=== PATIENT | female | born 1980 | race American Indian/Alaskan Native ===

== ENCOUNTER 2018-03-04 10:18 | Outpatient (CLI) | payer BC ==
[2018-03-04] MEDS ORDERED: XYLOCAINE TOPICAL 4% TP ONE ×2 (10:47→10:48)
== END 2018-03-04 10:19 | disposition home or self-care (01) ==
LOC: WOUND 10:18
PROVIDERS: ATTEND Surgery
DX: T81.89XA Other complications of procedures, not elsewhere classified, initial encounter (principal); X58.XXXA Exposure to other specified factors, initial encounter; Y93.89 Activity, other specified; Y92.89 Other specified places as the place of occurrence of the external cause; Y99.8 Other external cause status
CPT/HCPCS: 99205; 99215; G0463

== ENCOUNTER 2018-03-11 08:07 | Outpatient (CLI) | payer BC ==
[2018-03-11] MEDS ORDERED: XYLOCAINE TOPICAL 4% TP ONE ×2 (08:23→08:38)
[2018-03-11] MEDS ORDERED: XYLOCAINE 2%/ EPI 1:200,000 INFILTRATI ONE ×2 (08:48→08:59)
[2018-03-11] MEDS ORDERED: SILVER NITRATE TP ONE ×2 (08:56→09:01)
== END 2018-03-11 08:08 | disposition home or self-care (01) ==
LOC: WOUND 08:07
PROVIDERS: ATTEND Surgery
DX: T81.89XD Other complications of procedures, not elsewhere classified, subsequent encounter (principal); Y83.8 Other surgical procedures as the cause of abnormal reaction of the patient, or of later complication, without mention of misadventure at the time of the procedure

== ENCOUNTER 2018-03-15 09:03 | Day surgery (SDC) | payer BC ==
[2018-03-15] MEDS ORDERED: DEMEROL IV PRN (10:16)
[2018-03-15] MEDS ORDERED: DILAUDID IV PRN (10:16)
[2018-03-15] MEDS ORDERED: ZOFRAN IV PRN (10:16)
--- NOTE | 2018-03-15 10:17 | Anesthesia Day of Surgery ---
Anesthesia Day of Surgery - Day of Surgery Patient Examined: Yes Patient H&P Reviewed: Yes Patient is NPO: Yes
--- NOTE | 2018-03-15 10:18 | Anesthesia Consultation ---
Anesthesia Consult and Med Hx Date of service: 03/15/18 - Airway Anesthetic Teeth Evaluation: Good ROM Head & Neck: Adequate Mental/Hyoid Distance: Adequate Mallampati Class: Class I Intubation Access Assessment: Good - Pulmonary Exam CTA: Yes - Cardiac Exam Cardiac Exam: RRR - Pre-Operative Health Status ASA Pre-Surgery Classification: ASA1 Proposed Anesthetic Plan: General - Central Nervous System Hx Psychiatric Problems: No - Other Systems Hx Alcohol Use: Yes ([facility]) Hx Substance Use: No Hx Cancer: No
--- NOTE | 2018-03-15 10:49 | XRay Report ---
RIGHT FOOT, 2 views: History: Right wound. No comparison. There have been previous surgical changes involving the distal first metatarsal, correlate with history. There appears to be soft tissue swelling and skin ulceration in this area. There is subtle bony lucency involving the distal first metatarsal. I cannot exclude an early osteomyelitis. The remaining bony structures and joint spaces are unremarkable. IMPRESSION: Surgical changes as described. Possible early osteomyelitis. Please correlate with the patient's clinical presentation. Triple phase bone scan may prove useful.
[2018-03-15] MEDS ORDERED: LACTATED RINGERS 1,000 ML IV SCH ×2 (11:00→12:00)
[2018-03-15] MEDS ORDERED: VERSED IV NR (11:00)
[2018-03-15] MEDS ORDERED: ANCEF/STERILE WATER 2 GM/20 ML IV NR (11:00)
[2018-03-15] MEDS ORDERED: DIPRIVAN 10 MG/ML IV ONE (11:27)
[2018-03-15] MEDS ORDERED: ZOFRAN ONE (11:28)
[2018-03-15] MEDS ORDERED: DECADRON ONE (11:28)
[2018-03-15] MEDS ORDERED: XYLOCAINE MPF 2% ONE (11:29)
[2018-03-15] MEDS ORDERED: SUBLIMAZE ONE (11:44)
[2018-03-15] MEDS ORDERED: NORCO 5/325 PO ONE (13:47)
--- NOTE | 2018-03-15 14:08 | Post Anesthesia Evaluation ---
- Post Anesthesia Evaluation Patient Participated: Yes Airway Patent: Yes Stable Respiratory Function: Yes Nausea/Vomiting: No Temp > 96.8F: Yes Pain Manageable: Yes Adequeate Hydration: Yes Anesthesia Complications: No
[2018-03-15 14:44] VITALS: BP 107/73
--- NOTE | 2018-03-15 18:55 | Operative Report ---
Operative Report Operative Report: Date of procedure: 03/15/18 Pre-op diagnosis: dry gangrene right foot wound Post-op diagnosis: same Procedure: excisional debridement of necrotic right foot wound Anesthesia: GETA Findings: Necrotic skin, subcutaneous tissue, tendon, and bone. Exposed harware. Surgeon: MARCELO LOZA Estimated blood loss: minimal Pathology: list (cultures) Specimen disposition: to lab Condition: stable HPI an indication: Patient is a 37-year-old female who was referred by her varnish melter to the wound care clinic for a wound of her right foot. The patient is status post recent bunionectomy of the right foot and subsequently developed a necrotic wound. An attempt was made at debridement in the office however the patient did not tolerate this as it was too painful. Therefore, she was scheduled for the operating room for debridement of dry gangrene of right foot wound. All risks, benefits, alternatives to surgery were discussed with the patient and she agreed to proceed. Consent was signed and placed on chart. Procedure in detail: The patient was identified in the preoperative area, taken back to the operating room, placed on the operating room table in supine position. After anesthesia was induced, the right foot was prepped and draped in the usual sterile fashion and a timeout was performed. Using forceps and a 10 blade, the necrotic eschar, gangrenous tissue of the forefoot and medial foot was debrided until healthy, bleeding tissue was encountered. Once the skin and subcutaneous tissue was removed, the hardware from the bunionectomy was visible as well as bone. The majority of the tendon to the great toe did appear viable and was left in situ intact. A portion of the tendon which appeared necrotic, was debrided. The bone was debrided using a curet. The cuneiform bone and first metatarsal bone appeared black on the surface however the structural integrity appeared intact. The debrided tissue was sent for culture The wound was irrigated with saline, and hemostasis achieved using electrocautery. Once hemostasis was ensured, the wound was packed with Betadine moistened 4 x 4 gauze. This was covered with dry 4 x 4 gauze, ABDs pad , and wrapped with Kerlix. Predebridement measurements: 8.5cm length x 6cm width x 0.3cm depth Postdebridement measurements: 9.2cm length x 7cm width x 0.4cm depth At the end of the case, all sponge, instrument, sharp counts were correct 2. The patient was awoken from anesthesia, extubated, taken to PACU in stable condition.
== END 2018-03-15 14:45 | disposition home or self-care (01) ==
LOC: OR 09:03
PROVIDERS: ATTEND Surgery
DX: I96 Gangrene, not elsewhere classified (principal)
CPT/HCPCS: 36415; 73620; 84703; 87116; J0690; J1100; J2250; J2405; J2704; J3010; J7120

== ENCOUNTER 2018-03-17 08:08 | Outpatient (CLI) | payer BC ==
[2018-03-17] MEDS ORDERED: XYLOCAINE TOPICAL 4% TP ONE (08:40)
== END 2018-03-17 08:09 | disposition home or self-care (01) ==
LOC: WOUND 08:08
PROVIDERS: ATTEND Surgery
DX: T81.89XD Other complications of procedures, not elsewhere classified, subsequent encounter (principal); I96 Gangrene, not elsewhere classified; Y83.8 Other surgical procedures as the cause of abnormal reaction of the patient, or of later complication, without mention of misadventure at the time of the procedure
CPT/HCPCS: 99213; G0463

== ENCOUNTER 2018-03-18 10:02 | Outpatient (CLI) | payer BC | END 2018-03-18 10:03 | disposition home or self-care (01) | LOC: WOUND 10:02 | PROVIDERS: ATTEND Surgery | DX: T81.89XA Other complications of procedures, not elsewhere classified, initial encounter (principal); A48.0 Gas gangrene; Y83.8 Other surgical procedures as the cause of abnormal reaction of the patient, or of later complication, without mention of misadventure at the time of the procedure; Y92.89 Other specified places as the place of occurrence of the external cause | CPT/HCPCS: G0277 ×2; 99183 ==

== ENCOUNTER 2018-03-19 10:02 | Outpatient (CLI) | payer BC | END 2018-03-19 10:03 | disposition home or self-care (01) | LOC: WOUND 10:02 | PROVIDERS: ATTEND Surgery | DX: T81.89XD Other complications of procedures, not elsewhere classified, subsequent encounter (principal); A48.0 Gas gangrene; Y83.8 Other surgical procedures as the cause of abnormal reaction of the patient, or of later complication, without mention of misadventure at the time of the procedure | CPT/HCPCS: G0277 ×2; 99183 ==

== ENCOUNTER 2018-03-22 10:05 | Outpatient (CLI) | payer BC | END 2018-03-22 10:06 | disposition home or self-care (01) | LOC: WOUND 10:05 | PROVIDERS: ATTEND Surgery | DX: T81.89XD Other complications of procedures, not elsewhere classified, subsequent encounter (principal); A48.0 Gas gangrene; Y83.8 Other surgical procedures as the cause of abnormal reaction of the patient, or of later complication, without mention of misadventure at the time of the procedure | CPT/HCPCS: G0277 ×2; 99183 ==

== ENCOUNTER 2018-03-23 10:07 | Outpatient (CLI) | payer BC | END 2018-03-23 10:08 | disposition home or self-care (01) | LOC: WOUND 10:07 | PROVIDERS: ATTEND Surgery | DX: T81.89XD Other complications of procedures, not elsewhere classified, subsequent encounter (principal); A48.0 Gas gangrene; Y83.8 Other surgical procedures as the cause of abnormal reaction of the patient, or of later complication, without mention of misadventure at the time of the procedure | CPT/HCPCS: G0277 ×2; 99183 ==

== ENCOUNTER 2018-03-25 09:08 | Outpatient (CLI) | payer BC ==
[2018-03-25] MEDS ORDERED: XYLOCAINE TOPICAL 4% TP ONE (09:28)
== END 2018-03-25 09:09 | disposition home or self-care (01) ==
LOC: WOUND 09:08
PROVIDERS: ATTEND Surgery
DX: T81.89XD Other complications of procedures, not elsewhere classified, subsequent encounter (principal); A48.0 Gas gangrene; Y83.8 Other surgical procedures as the cause of abnormal reaction of the patient, or of later complication, without mention of misadventure at the time of the procedure
CPT/HCPCS: 11044; 11047; G0277; 99183

== ENCOUNTER 2018-03-26 11:01 | Outpatient (CLI) | payer BC | END 2018-03-26 11:02 | disposition home or self-care (01) | LOC: WOUND 11:01 | PROVIDERS: ATTEND Surgery | DX: T81.89XD Other complications of procedures, not elsewhere classified, subsequent encounter (principal); A48.0 Gas gangrene; Y83.8 Other surgical procedures as the cause of abnormal reaction of the patient, or of later complication, without mention of misadventure at the time of the procedure | CPT/HCPCS: G0277 ×2; 99183 ==

== ENCOUNTER 2018-03-29 10:12 | Outpatient (CLI) | payer BC | END 2018-03-29 10:13 | disposition home or self-care (01) | LOC: WOUND 10:12 | PROVIDERS: ATTEND Surgery | DX: T81.89XD Other complications of procedures, not elsewhere classified, subsequent encounter (principal); A48.0 Gas gangrene; Y83.8 Other surgical procedures as the cause of abnormal reaction of the patient, or of later complication, without mention of misadventure at the time of the procedure | CPT/HCPCS: G0277 ×2; 99183 ==

== ENCOUNTER 2018-03-30 09:56 | Outpatient (CLI) | payer BC | END 2018-03-30 09:57 | disposition home or self-care (01) | LOC: WOUND 09:56 | PROVIDERS: ATTEND Surgery | DX: T81.89XD Other complications of procedures, not elsewhere classified, subsequent encounter (principal); A48.0 Gas gangrene; Y83.8 Other surgical procedures as the cause of abnormal reaction of the patient, or of later complication, without mention of misadventure at the time of the procedure | CPT/HCPCS: G0277 ×2; 99183 ==

== ENCOUNTER 2018-03-31 09:53 | Outpatient (CLI) | payer BC | END 2018-03-31 09:54 | disposition home or self-care (01) | LOC: WOUND 09:53 | PROVIDERS: ATTEND Surgery | DX: T81.89XD Other complications of procedures, not elsewhere classified, subsequent encounter (principal); A48.0 Gas gangrene; Y83.8 Other surgical procedures as the cause of abnormal reaction of the patient, or of later complication, without mention of misadventure at the time of the procedure | CPT/HCPCS: G0277 ×2; 99183 ==

== ENCOUNTER 2018-04-01 09:11 | Outpatient (CLI) | payer BC ==
[2018-04-01] MEDS ORDERED: XYLOCAINE TOPICAL 4% TP ONE (09:16)
== END 2018-04-01 09:12 | disposition home or self-care (01) ==
LOC: WOUND 09:11
PROVIDERS: ATTEND Surgery
DX: T81.89XD Other complications of procedures, not elsewhere classified, subsequent encounter (principal); A48.0 Gas gangrene; Y83.8 Other surgical procedures as the cause of abnormal reaction of the patient, or of later complication, without mention of misadventure at the time of the procedure
CPT/HCPCS: 11044; 11047; G0277; 99183

== ENCOUNTER 2018-04-02 10:11 | Outpatient (CLI) | payer BC | END 2018-04-02 10:12 | disposition home or self-care (01) | LOC: WOUND 10:11 | PROVIDERS: ATTEND Surgery | DX: T81.89XD Other complications of procedures, not elsewhere classified, subsequent encounter (principal); A48.0 Gas gangrene; Y83.8 Other surgical procedures as the cause of abnormal reaction of the patient, or of later complication, without mention of misadventure at the time of the procedure | CPT/HCPCS: G0277 ×2; 99183 ==

== ENCOUNTER 2018-04-05 10:19 | Outpatient (CLI) | payer BC | END 2018-04-05 10:20 | disposition home or self-care (01) | LOC: WOUND 10:19 | PROVIDERS: ATTEND Surgery | DX: T81.89XD Other complications of procedures, not elsewhere classified, subsequent encounter (principal); A48.0 Gas gangrene; Y83.8 Other surgical procedures as the cause of abnormal reaction of the patient, or of later complication, without mention of misadventure at the time of the procedure | CPT/HCPCS: G0277 ×2; 99183 ==

== ENCOUNTER 2018-04-06 10:14 | Outpatient (CLI) | payer BC | END 2018-04-06 10:15 | disposition home or self-care (01) | LOC: WOUND 10:14 | PROVIDERS: ATTEND Surgery | DX: T81.89XD Other complications of procedures, not elsewhere classified, subsequent encounter (principal); A48.0 Gas gangrene; Y83.8 Other surgical procedures as the cause of abnormal reaction of the patient, or of later complication, without mention of misadventure at the time of the procedure | CPT/HCPCS: G0277 ×2; 99183 ==

== ENCOUNTER 2018-04-07 10:12 | Outpatient (CLI) | payer BC | END 2018-04-07 10:13 | disposition home or self-care (01) | LOC: WOUND 10:12 | PROVIDERS: ATTEND Surgery | DX: T81.89XD Other complications of procedures, not elsewhere classified, subsequent encounter (principal); A48.0 Gas gangrene; Y83.8 Other surgical procedures as the cause of abnormal reaction of the patient, or of later complication, without mention of misadventure at the time of the procedure | CPT/HCPCS: G0277 ×2; 99183 ==

== ENCOUNTER 2018-04-08 10:13 | Outpatient (CLI) | payer BC | END 2018-04-08 10:14 | disposition home or self-care (01) | LOC: WOUND 10:13 | PROVIDERS: ATTEND Surgery | DX: T81.89XD Other complications of procedures, not elsewhere classified, subsequent encounter (principal); A48.0 Gas gangrene; Y83.8 Other surgical procedures as the cause of abnormal reaction of the patient, or of later complication, without mention of misadventure at the time of the procedure | CPT/HCPCS: G0277 ×2; 99183 ==

== ENCOUNTER 2018-04-09 10:09 | Outpatient (CLI) | payer BC | END 2018-04-09 10:10 | disposition home or self-care (01) | LOC: WOUND 10:09 | PROVIDERS: ATTEND Surgery | DX: T81.89XD Other complications of procedures, not elsewhere classified, subsequent encounter (principal); A48.0 Gas gangrene; Y83.8 Other surgical procedures as the cause of abnormal reaction of the patient, or of later complication, without mention of misadventure at the time of the procedure | CPT/HCPCS: G0277 ×2; 99183 ==

== ENCOUNTER 2018-04-12 10:13 | Outpatient (CLI) | payer BC | END 2018-04-12 10:14 | disposition home or self-care (01) | LOC: WOUND 10:13 | PROVIDERS: ATTEND Surgery | DX: T81.89XD Other complications of procedures, not elsewhere classified, subsequent encounter (principal); A48.0 Gas gangrene; Y83.8 Other surgical procedures as the cause of abnormal reaction of the patient, or of later complication, without mention of misadventure at the time of the procedure | CPT/HCPCS: G0277; G0463; 99183 ==

== ENCOUNTER 2018-04-13 09:57 | Outpatient (CLI) | payer BC | END 2018-04-13 09:58 | disposition home or self-care (01) | LOC: WOUND 09:57 | PROVIDERS: ATTEND Surgery | DX: T81.89XD Other complications of procedures, not elsewhere classified, subsequent encounter (principal); A48.0 Gas gangrene; Y83.8 Other surgical procedures as the cause of abnormal reaction of the patient, or of later complication, without mention of misadventure at the time of the procedure | CPT/HCPCS: G0277 ×2; 99183 ==

== ENCOUNTER 2018-04-14 10:14 | Outpatient (CLI) | payer BC | END 2018-04-14 10:15 | disposition home or self-care (01) | LOC: WOUND 10:14 | PROVIDERS: ATTEND Surgery | DX: T81.89XD Other complications of procedures, not elsewhere classified, subsequent encounter (principal); A48.0 Gas gangrene; Y83.8 Other surgical procedures as the cause of abnormal reaction of the patient, or of later complication, without mention of misadventure at the time of the procedure | CPT/HCPCS: G0277 ×2; 99183 ==

== ENCOUNTER 2018-04-15 09:09 | Outpatient (CLI) | payer BC | END 2018-04-15 09:10 | disposition home or self-care (01) | LOC: WOUND 09:09 | PROVIDERS: ATTEND Surgery | DX: T81.89XD Other complications of procedures, not elsewhere classified, subsequent encounter (principal); A48.0 Gas gangrene; Y83.8 Other surgical procedures as the cause of abnormal reaction of the patient, or of later complication, without mention of misadventure at the time of the procedure | CPT/HCPCS: 97606; G0277; 99183 ==

== ENCOUNTER 2018-04-16 10:12 | Outpatient (CLI) | payer BC | END 2018-04-16 10:13 | disposition home or self-care (01) | LOC: WOUND 10:12 | PROVIDERS: ATTEND Surgery | DX: T81.89XD Other complications of procedures, not elsewhere classified, subsequent encounter (principal); A48.0 Gas gangrene; Y83.8 Other surgical procedures as the cause of abnormal reaction of the patient, or of later complication, without mention of misadventure at the time of the procedure | CPT/HCPCS: G0277 ×2; 99183 ==

== ENCOUNTER 2018-04-19 08:22 | Outpatient (CLI) | payer BC ==
[2018-04-19] MEDS ORDERED: XYLOCAINE TOPICAL 4% TP ONE (10:57)
== END 2018-04-19 08:23 | disposition home or self-care (01) ==
LOC: WOUND 08:22
PROVIDERS: ATTEND Surgery
DX: T81.89XD Other complications of procedures, not elsewhere classified, subsequent encounter (principal); A48.0 Gas gangrene; Y83.8 Other surgical procedures as the cause of abnormal reaction of the patient, or of later complication, without mention of misadventure at the time of the procedure
CPT/HCPCS: 11042; 11045; 97605; G0277; 99183

== ENCOUNTER 2018-04-21 08:02 | Outpatient (CLI) | payer BC | END 2018-04-21 08:03 | disposition home or self-care (01) | LOC: WOUND 08:02 | PROVIDERS: ATTEND Surgery | DX: T81.89XD Other complications of procedures, not elsewhere classified, subsequent encounter (principal); M86.671 Other chronic osteomyelitis, right ankle and foot; Y83.8 Other surgical procedures as the cause of abnormal reaction of the patient, or of later complication, without mention of misadventure at the time of the procedure | CPT/HCPCS: G0277 ×2; 99183 ==

== ENCOUNTER 2018-04-22 08:03 | Outpatient (CLI) | payer BC | END 2018-04-22 08:04 | disposition home or self-care (01) | LOC: WOUND 08:03 | PROVIDERS: ATTEND Surgery | DX: T81.89XD Other complications of procedures, not elsewhere classified, subsequent encounter (principal); M86.671 Other chronic osteomyelitis, right ankle and foot; Y83.8 Other surgical procedures as the cause of abnormal reaction of the patient, or of later complication, without mention of misadventure at the time of the procedure | CPT/HCPCS: 97605; G0277; 99183 ==

== ENCOUNTER 2018-04-23 08:00 | Outpatient (CLI) | payer BC | END 2018-04-23 08:01 | disposition home or self-care (01) | LOC: WOUND 08:00 | PROVIDERS: ATTEND Surgery | DX: T81.89XD Other complications of procedures, not elsewhere classified, subsequent encounter (principal); M86.671 Other chronic osteomyelitis, right ankle and foot; I96 Gangrene, not elsewhere classified; Y83.8 Other surgical procedures as the cause of abnormal reaction of the patient, or of later complication, without mention of misadventure at the time of the procedure | CPT/HCPCS: G0277 ×2; 99183 ==

== ENCOUNTER 2018-04-26 08:08 | Outpatient (CLI) | payer BC ==
[2018-04-26] MEDS ORDERED: XYLOCAINE TOPICAL 4% TP ONE (10:53)
== END 2018-04-26 08:09 | disposition home or self-care (01) ==
LOC: WOUND 08:08
PROVIDERS: ATTEND Surgery
DX: T81.89XD Other complications of procedures, not elsewhere classified, subsequent encounter (principal); M86.671 Other chronic osteomyelitis, right ankle and foot; I96 Gangrene, not elsewhere classified; Y83.8 Other surgical procedures as the cause of abnormal reaction of the patient, or of later complication, without mention of misadventure at the time of the procedure
CPT/HCPCS: 11043; 11046; 87075; 87116; 97605; G0277; 99183

== ENCOUNTER 2018-04-27 08:11 | Outpatient (CLI) | payer BC ==
[~2018-04-27 08:11] MED LIST: XYLOCAINE TOPICAL 4% TP ONE
== END 2018-04-27 08:12 | disposition home or self-care (01) ==
LOC: WOUND 08:11
PROVIDERS: ATTEND Surgery
DX: T81.89XD Other complications of procedures, not elsewhere classified, subsequent encounter (principal); M86.671 Other chronic osteomyelitis, right ankle and foot; I96 Gangrene, not elsewhere classified; Y83.8 Other surgical procedures as the cause of abnormal reaction of the patient, or of later complication, without mention of misadventure at the time of the procedure
CPT/HCPCS: G0277 ×2; 99183

== ENCOUNTER 2018-04-30 08:03 | Outpatient (CLI) | payer BC | END 2018-04-30 08:04 | disposition home or self-care (01) | LOC: WOUND 08:03 | PROVIDERS: ATTEND Surgery | DX: T81.89XD Other complications of procedures, not elsewhere classified, subsequent encounter (principal); M86.671 Other chronic osteomyelitis, right ankle and foot; I96 Gangrene, not elsewhere classified; Y83.8 Other surgical procedures as the cause of abnormal reaction of the patient, or of later complication, without mention of misadventure at the time of the procedure | CPT/HCPCS: G0277 ×2; 99183 ==

== ENCOUNTER 2018-05-03 08:03 | Outpatient (CLI) | payer BC ==
[2018-05-03] MEDS ORDERED: XYLOCAINE TOPICAL 4% TP ONE (11:01)
[2018-05-04] MEDS ORDERED: XYLOCAINE TOPICAL 4% TP ONE (15:07)
== END 2018-05-03 08:04 | disposition home or self-care (01) ==
LOC: WOUND 08:03
PROVIDERS: ATTEND Surgery
DX: T81.89XD Other complications of procedures, not elsewhere classified, subsequent encounter (principal); M86.671 Other chronic osteomyelitis, right ankle and foot; I96 Gangrene, not elsewhere classified; Y83.8 Other surgical procedures as the cause of abnormal reaction of the patient, or of later complication, without mention of misadventure at the time of the procedure
CPT/HCPCS: 97605; G0277; 99183

== ENCOUNTER → 2018-05-04 | Outpatient (CLI) | payer BC | END | disposition home or self-care (01) | LOC: WOUND 08:09 | PROVIDERS: ATTEND Surgery | DX: T81.89XD Other complications of procedures, not elsewhere classified, subsequent encounter (principal); M86.671 Other chronic osteomyelitis, right ankle and foot; I96 Gangrene, not elsewhere classified; Y83.8 Other surgical procedures as the cause of abnormal reaction of the patient, or of later complication, without mention of misadventure at the time of the procedure | CPT/HCPCS: G0277 ×2; 99183 ==

== ENCOUNTER → 2018-05-05 | Outpatient (CLI) | payer BC | END | disposition home or self-care (01) | LOC: WOUND 07:59 | PROVIDERS: ATTEND Surgery | DX: T81.89XD Other complications of procedures, not elsewhere classified, subsequent encounter (principal); M86.671 Other chronic osteomyelitis, right ankle and foot; I96 Gangrene, not elsewhere classified; Y83.8 Other surgical procedures as the cause of abnormal reaction of the patient, or of later complication, without mention of misadventure at the time of the procedure | CPT/HCPCS: 97605; G0277; 99183 ==

== ENCOUNTER 2018-05-06 08:04 | Outpatient (CLI) | payer BC | END 2018-05-06 08:05 | disposition home or self-care (01) | LOC: WOUND 08:04 | PROVIDERS: ATTEND Surgery | DX: T81.89XD Other complications of procedures, not elsewhere classified, subsequent encounter (principal); M86.671 Other chronic osteomyelitis, right ankle and foot; I96 Gangrene, not elsewhere classified; Y83.8 Other surgical procedures as the cause of abnormal reaction of the patient, or of later complication, without mention of misadventure at the time of the procedure | CPT/HCPCS: 97605; G0277; 99183 ==

== ENCOUNTER 2018-05-07 08:02 | Outpatient (CLI) | payer BC | END 2018-05-07 08:03 | disposition home or self-care (01) | LOC: WOUND 08:02 | PROVIDERS: ATTEND Surgery | DX: T81.89XD Other complications of procedures, not elsewhere classified, subsequent encounter (principal); M86.671 Other chronic osteomyelitis, right ankle and foot; I96 Gangrene, not elsewhere classified; Y83.8 Other surgical procedures as the cause of abnormal reaction of the patient, or of later complication, without mention of misadventure at the time of the procedure | CPT/HCPCS: G0277 ×2; 99183 ==

== ENCOUNTER 2018-05-10 08:09 | Outpatient (CLI) | payer BC ==
[2018-05-10] MEDS ORDERED: XYLOCAINE TOPICAL 4% TP ONE ×2 (11:22→11:31)
== END 2018-05-10 08:10 | disposition home or self-care (01) ==
LOC: WOUND 08:09
PROVIDERS: ATTEND Surgery
DX: T81.89XD Other complications of procedures, not elsewhere classified, subsequent encounter (principal); M86.671 Other chronic osteomyelitis, right ankle and foot; I96 Gangrene, not elsewhere classified; Y83.8 Other surgical procedures as the cause of abnormal reaction of the patient, or of later complication, without mention of misadventure at the time of the procedure
CPT/HCPCS: 11042; 11045; 97605; G0277; 99183

== ENCOUNTER 2018-05-11 07:57 | Outpatient (CLI) | payer BC | END 2018-05-11 07:58 | disposition home or self-care (01) | LOC: WOUND 07:57 | PROVIDERS: ATTEND Surgery | DX: T81.89XD Other complications of procedures, not elsewhere classified, subsequent encounter (principal); M86.671 Other chronic osteomyelitis, right ankle and foot; I96 Gangrene, not elsewhere classified; Y83.8 Other surgical procedures as the cause of abnormal reaction of the patient, or of later complication, without mention of misadventure at the time of the procedure | CPT/HCPCS: 99183; G0277 ==

== ENCOUNTER 2018-05-12 08:03 | Outpatient (CLI) | payer BC | END 2018-05-12 08:04 | disposition home or self-care (01) | LOC: WOUND 08:03 | PROVIDERS: ATTEND Surgery | DX: T81.89XD Other complications of procedures, not elsewhere classified, subsequent encounter (principal); I96 Gangrene, not elsewhere classified; M86.671 Other chronic osteomyelitis, right ankle and foot; Y83.8 Other surgical procedures as the cause of abnormal reaction of the patient, or of later complication, without mention of misadventure at the time of the procedure | CPT/HCPCS: 99183; G0277 ==

== ENCOUNTER 2018-05-13 07:55 | Outpatient (CLI) | payer BC | END 2018-05-13 07:56 | disposition home or self-care (01) | LOC: WOUND 07:55 | PROVIDERS: ATTEND Surgery | DX: T81.89XD Other complications of procedures, not elsewhere classified, subsequent encounter (principal); I96 Gangrene, not elsewhere classified; M86.671 Other chronic osteomyelitis, right ankle and foot; Y83.8 Other surgical procedures as the cause of abnormal reaction of the patient, or of later complication, without mention of misadventure at the time of the procedure | CPT/HCPCS: G0277; G0463; 99183; 99212 ==

== ENCOUNTER 2018-05-14 08:02 | Outpatient (CLI) | payer BC | END 2018-05-14 08:03 | disposition home or self-care (01) | LOC: WOUND 08:02 | PROVIDERS: ATTEND Surgery | DX: T81.89XD Other complications of procedures, not elsewhere classified, subsequent encounter (principal); I96 Gangrene, not elsewhere classified; M86.671 Other chronic osteomyelitis, right ankle and foot; Y83.8 Other surgical procedures as the cause of abnormal reaction of the patient, or of later complication, without mention of misadventure at the time of the procedure | CPT/HCPCS: 97605; G0277; 99183 ==

== ENCOUNTER 2018-05-17 07:55 | Outpatient (CLI) | payer BC | END 2018-05-17 07:56 | disposition home or self-care (01) | LOC: WOUND 07:55 | PROVIDERS: ATTEND Surgery | DX: T81.89XD Other complications of procedures, not elsewhere classified, subsequent encounter (principal); I96 Gangrene, not elsewhere classified; M86.671 Other chronic osteomyelitis, right ankle and foot; Y83.8 Other surgical procedures as the cause of abnormal reaction of the patient, or of later complication, without mention of misadventure at the time of the procedure | CPT/HCPCS: 99183; G0277 ==

== ENCOUNTER 2018-05-18 08:00 | Outpatient (CLI) | payer BC ==
[2018-05-18] MEDS ORDERED: XYLOCAINE TOPICAL 4% TP ONE ×2 (11:13→13:50)
[2018-05-18] MEDS ORDERED: SILVER NITRATE TP ONE ×2 (11:58→15:39)
== END 2018-05-18 08:01 | disposition home or self-care (01) ==
LOC: WOUND 08:00
PROVIDERS: ATTEND Surgery
DX: T81.89XD Other complications of procedures, not elsewhere classified, subsequent encounter (principal); M86.671 Other chronic osteomyelitis, right ankle and foot; I96 Gangrene, not elsewhere classified; Y83.8 Other surgical procedures as the cause of abnormal reaction of the patient, or of later complication, without mention of misadventure at the time of the procedure
CPT/HCPCS: 11042; 11045; G0277; 99183

== ENCOUNTER 2018-05-19 08:05 | Outpatient (CLI) | payer BC | END 2018-05-19 08:06 | disposition home or self-care (01) | LOC: WOUND 08:05 | PROVIDERS: ATTEND Surgery | DX: T81.89XD Other complications of procedures, not elsewhere classified, subsequent encounter (principal); I96 Gangrene, not elsewhere classified; M86.671 Other chronic osteomyelitis, right ankle and foot; Y83.8 Other surgical procedures as the cause of abnormal reaction of the patient, or of later complication, without mention of misadventure at the time of the procedure | CPT/HCPCS: 97605; G0277; 99183 ==

== ENCOUNTER 2018-05-20 07:51 | Outpatient (CLI) | payer BC | END 2018-05-20 07:52 | disposition home or self-care (01) | LOC: WOUND 07:51 | PROVIDERS: ATTEND Surgery | DX: T81.89XD Other complications of procedures, not elsewhere classified, subsequent encounter (principal); M86.671 Other chronic osteomyelitis, right ankle and foot; I96 Gangrene, not elsewhere classified; Y83.8 Other surgical procedures as the cause of abnormal reaction of the patient, or of later complication, without mention of misadventure at the time of the procedure | CPT/HCPCS: 99183; G0277 ==

== ENCOUNTER 2018-05-21 07:55 | Outpatient (CLI) | payer BC | END 2018-05-21 07:56 | disposition home or self-care (01) | LOC: WOUND 07:55 | PROVIDERS: ATTEND Surgery | DX: T81.89XD Other complications of procedures, not elsewhere classified, subsequent encounter (principal); I96 Gangrene, not elsewhere classified; M86.671 Other chronic osteomyelitis, right ankle and foot; Y83.8 Other surgical procedures as the cause of abnormal reaction of the patient, or of later complication, without mention of misadventure at the time of the procedure | CPT/HCPCS: 97605; G0277; 99183 ==

== ENCOUNTER 2018-05-25 07:54 | Outpatient (CLI) | payer BC ==
[2018-05-25] MEDS ORDERED: SODIUM CHLORIDE FLUSH SYRINGE 10 ML IV ONE (10:54)
[2018-05-27] MEDS ORDERED: SODIUM CHLORIDE FLUSH SYRINGE 10 ML IV ONE (13:37)
== END 2018-05-25 07:55 | disposition home or self-care (01) ==
LOC: WOUND 07:54
PROVIDERS: ATTEND Surgery
DX: T81.89XD Other complications of procedures, not elsewhere classified, subsequent encounter (principal); M86.671 Other chronic osteomyelitis, right ankle and foot; I96 Gangrene, not elsewhere classified; Y83.8 Other surgical procedures as the cause of abnormal reaction of the patient, or of later complication, without mention of misadventure at the time of the procedure
CPT/HCPCS: 97605; G0277; 99183

== ENCOUNTER 2018-05-28 08:03 | Outpatient (CLI) | payer BC | END 2018-05-28 08:04 | disposition home or self-care (01) | LOC: WOUND 08:03 | PROVIDERS: ATTEND Surgery | DX: T81.89XD Other complications of procedures, not elsewhere classified, subsequent encounter (principal); M86.671 Other chronic osteomyelitis, right ankle and foot; I96 Gangrene, not elsewhere classified; Y83.8 Other surgical procedures as the cause of abnormal reaction of the patient, or of later complication, without mention of misadventure at the time of the procedure | CPT/HCPCS: 97605; G0277; 99183 ==

== ENCOUNTER 2018-05-31 07:59 | Outpatient (CLI) | payer BC | END 2018-05-31 08:00 | disposition home or self-care (01) | LOC: WOUND 07:59 | PROVIDERS: ATTEND Surgery | DX: T81.89XD Other complications of procedures, not elsewhere classified, subsequent encounter (principal); M86.671 Other chronic osteomyelitis, right ankle and foot; I96 Gangrene, not elsewhere classified; Y83.8 Other surgical procedures as the cause of abnormal reaction of the patient, or of later complication, without mention of misadventure at the time of the procedure | CPT/HCPCS: 97605; G0277; 99183 ==

== ENCOUNTER 2018-06-01 07:55 | Outpatient (CLI) | payer BC | END 2018-06-01 07:56 | disposition home or self-care (01) | LOC: WOUND 07:55 | PROVIDERS: ATTEND Surgery | DX: T81.89XD Other complications of procedures, not elsewhere classified, subsequent encounter (principal); M86.671 Other chronic osteomyelitis, right ankle and foot; I96 Gangrene, not elsewhere classified; Y83.8 Other surgical procedures as the cause of abnormal reaction of the patient, or of later complication, without mention of misadventure at the time of the procedure | CPT/HCPCS: 99183; G0277 ==

== ENCOUNTER 2018-06-02 08:01 | Outpatient (CLI) | payer BC ==
[2018-06-03] MEDS ORDERED: SODIUM CHLORIDE FLUSH SYRINGE 10 ML IV ONE (13:08)
== END 2018-06-02 08:02 | disposition home or self-care (01) ==
LOC: WOUND 08:01
PROVIDERS: ATTEND Surgery
DX: T81.89XD Other complications of procedures, not elsewhere classified, subsequent encounter (principal); M86.671 Other chronic osteomyelitis, right ankle and foot; I96 Gangrene, not elsewhere classified; Y83.8 Other surgical procedures as the cause of abnormal reaction of the patient, or of later complication, without mention of misadventure at the time of the procedure
CPT/HCPCS: 99183; G0277

== ENCOUNTER 2018-06-03 07:57 | Outpatient (CLI) | payer BC ==
[~2018-06-03 07:57] MED LIST changes: +SODIUM CHLORIDE FLUSH SYRINGE 10 ML IV ONE; -XYLOCAINE TOPICAL 4% TP ONE
[2018-06-03] MEDS ORDERED: SODIUM CHLORIDE FLUSH SYRINGE 10 ML IV ONE (16:26)
== END 2018-06-03 07:58 | disposition home or self-care (01) ==
LOC: WOUND 07:57
PROVIDERS: ATTEND Surgery
DX: T81.89XD Other complications of procedures, not elsewhere classified, subsequent encounter (principal); M86.671 Other chronic osteomyelitis, right ankle and foot; I96 Gangrene, not elsewhere classified; Y83.8 Other surgical procedures as the cause of abnormal reaction of the patient, or of later complication, without mention of misadventure at the time of the procedure
CPT/HCPCS: 97605; G0277; 99183

== ENCOUNTER 2018-06-03 20:52 | Emergency (ER) | payer BC ==
[2018-06-03] MEDS ORDERED: NACL 0.9% 500 ML 500 ML IV ONE (21:26)
[2018-06-03 22:51] LABS: Basophils % (Auto) 0.1 % (0.0-1.8); Hematocrit 38.1 % (30.3-42.9); Lymphocytes # (Auto) 0.5 K/mm3 (1.2-5.4); Lymphocytes % (Auto) 7.1 % (13.4-35.0); Mean Corpuscular HGB Conc 34 % (30-34); Mean Corpuscular Hemoglobin 32 pg (28-32); Mean Corpuscular Volume 93 fl (79-97); Monocytes # (Auto) 0.3 K/mm3 (0.0-0.8); Monocytes % (Auto) 4.7 % (0.0-7.3); Platelet Count 262 K/mm3 (140-440); Red Blood Count 4.11 M/mm3 (3.65-5.03); Red Cell Distribution Width 13.3 % (13.2-15.2)
[2018-06-03 23:03] LABS: INR 0.99 (0.87-1.13)
[2018-06-03 23:19] LABS: Alanine Aminotransferase 15 units/L (7-56); Albumin 4.2 g/dL (3.9-5); BUN/Creatinine Ratio 10; Blood Urea Nitrogen 8 mg/dL (7-17); Calcium 8.8 mg/dL (8.4-10.2); Hemolysis Index 3
--- NOTE | 2018-06-04 00:06 | XRay Report ---
FINAL REPORT PROCEDURE: XR CHEST ROUTINE 2V TECHNIQUE: PA and lateral chest radiographs were obtained. CPT 03494 HISTORY: possible Sepsis COMPARISON: No prior studies are available for comparison. FINDINGS: Heart: Normal. Mediastinum/Vessels: Normal. Lungs/Pleural space: Normal. Bony thorax: No acute osseous abnormality. Other: IMPRESSION: Normal examination.
--- NOTE | 2018-06-04 01:06 | Emergency Department Report ---
ED General Adult HPI - General Chief complaint: Fever Stated complaint: FEVER Time Seen by Provider: 06/04/18 00:48 Source: patient Mode of arrival: Ambulatory Limitations: No Limitations - History of Present Illness Initial comments: Sofiya is a healthy 37 yo female who presents with fever, body aches and mild headache. Patient has wound vac on right foot after excision debridement of necrotic right foot wound on March 15. Previously underwent bunionectomy on February 17. She had been on antibiotics for the past 8 weeks. Last dose of antibiotics was just 5 days ago on Thursday. She was evaluated by Dr. Ness on Thursday. She had wound care nurse evaluate and change wound vac today. Patient was instructed to be evaluated immediately if she developed fever. Patient did have osteomyelitis in the foot requiring 8 weeks of antibiotics which included ceftriaxone, flagyl and keflex. - Related Data Home Medications Medication Instructions Recorded Confirmed Last Taken NIFEdipine [Nifedipine] 10 mg PO DAILY 03/12/18 03/15/18 03/14/18 23:30 Previous Rx's Medication Instructions Recorded Last Taken Type HYDROcodone/ACETAMINOPHEN 1 each PO Q4H PRN #20 tablet 03/15/18 Unknown Rx [Hydrocodone-Acetamin 5-325 mg] Sulfamethoxazole/Trimethoprim 1 each PO BID #28 tablet 03/15/18 Unknown Rx [Bactrim DS TAB] cephALEXin [Keflex] 500 mg PO Q8HR 10 Days #30 cap 06/04/18 Unknown Rx metroNIDAZOLE [Flagyl] 500 mg PO Q8HR 10 Days #30 tablet 06/04/18 Unknown Rx Allergies Allergy/AdvReac Type Severity Reaction Status Date / Time No Known Allergies Allergy Verified 03/12/18 13:36 ED Review of Systems ROS: Stated complaint: FEVER Other details as noted in HPI Comment: All other systems reviewed and negative Constitutional: fever, malaise Respiratory: denies: cough Cardiovascular: denies: chest pain ED Past Medical Hx - Surgical History Past Surgical History?: Yes Additional Surgical History: bunionectomy wound excision - Medications Home Medications: Home Medications Medication Instructions Recorded Confirmed Last Taken Type NIFEdipine [Nifedipine] 10 mg PO DAILY 03/12/18 03/15/18 03/14/18 23:30 History HYDROcodone/ACETAMINOPHEN 1 each PO Q4H PRN #20 tablet 03/15/18 Unknown Rx [Hydrocodone-Acetamin 5-325 mg] Sulfamethoxazole/Trimethoprim 1 each PO BID #28 tablet 03/15/18 Unknown Rx [Bactrim DS TAB] cephALEXin [Keflex] 500 mg PO Q8HR 10 Days #30 cap 06/04/18 Unknown Rx metroNIDAZOLE [Flagyl] 500 mg PO Q8HR 10 Days #30 tablet 06/04/18 Unknown Rx ED Physical Exam - General Limitations: No Limitations General appearance: alert, in no apparent distress - Head Head exam: Present: atraumatic, normocephalic - Eye Eye exam: Present: normal appearance - ENT ENT exam: Present: mucous membranes moist - Neck Neck exam: Present: normal inspection. Absent: tenderness, meningismus - Respiratory Respiratory exam: Present: normal lung sounds bilaterally. Absent: respiratory distress, wheezes, rales, stridor - Cardiovascular Cardiovascular Exam: Present: normal rhythm, tachycardia, normal heart sounds. Absent: systolic murmur, diastolic murmur, rubs, gallop - GI/Abdominal GI/Abdominal exam: Present: soft, normal bowel sounds. Absent: distended, tenderness, rebound - Extremities Exam Extremities exam: Present: normal inspection - Back Exam Back exam: Present: normal inspection - Neurological Exam Neurological exam: Present: alert, oriented X3 - Psychiatric Psychiatric exam: Present: normal affect, normal mood - Skin Skin exam: Present: rash, other (wound vac in place over right foot with surgical changes no erythema or tenderness no obvious purulence serous fluid in wound vac catheter) ED Course Vital Signs 06/03/18 06/04/18 21:21 00:52 Temperature 100.4 F H Pulse Rate 122 H Respiratory 18 Rate Blood Pressure 111/74 O2 Sat by Pulse 99 Oximetry ED Medical Decision Making - Lab Data Result diagrams: 06/03/18 21:50 06/03/18 21:50 Laboratory Results - last 24 hr 06/03/18 06/03/18 06/03/18 21:50 21:50 21:50 WBC 7.2 RBC 4.11 Hgb 13.0 Hct 38.1 MCV 93 MCH 32 MCHC 34 RDW 13.3 Plt Count 262 Lymph % (Auto) 7.1 L [place] % (Auto) 4.7 Eos % (Auto) 0.0 Baso % (Auto) 0.1 Lymph # 0.5 L [place] # 0.3 Eos # 0.0 Baso # 0.0 Seg Neutrophils % 88.1 H Seg Neutrophils # 6.4 PT 13.6 INR 0.99 VBG pH Sodium Potassium Chloride Carbon Dioxide Anion Gap BUN Creatinine Estimated GFR BUN/Creatinine Ratio Glucose Lactic Acid Calcium Total Bilirubin AST ALT Alkaline Phosphatase Total Protein Albumin Albumin/Globulin Ratio Blood Type O POSITIVE Antibody Screen Negative 06/03/18 06/03/18 06/03/18 21:50 21:50 21:50 WBC RBC Hgb Hct MCV MCH MCHC RDW Plt Count Lymph % (Auto) [place] % (Auto) Eos % (Auto) Baso % (Auto) Lymph # [place] # Eos # Baso # Seg Neutrophils % Seg Neutrophils # PT INR VBG pH 7.328 Sodium 138 Potassium 3.7 Chloride 100.7 Carbon Dioxide 23 Anion Gap 18 BUN 8 Creatinine 0.8 Estimated GFR > 60 BUN/Creatinine Ratio 10 Glucose 104 H Lactic Acid 1.50 Calcium 8.8 Total Bilirubin 0.30 AST 24 ALT 15 Alkaline Phosphatase 43 Total Protein 7.0 Albumin 4.2 Albumin/Globulin Ratio 1.5 Blood Type Antibody Screen - Radiology Data Radiology results: report reviewed cxr no acute process - Medical Decision Making Ms. Zambrano presents with fever myalgias without signs of infection at the area of the wound vac. I am concerned that patient developed fever just 5 days after finishing 8 weeks of antibiotics. Normal WBC, normal lactic, blood culture obtained. fever could be caused by infection not related to foot infection I reviewed operative report and surgical consultation. I attempted to contact Dr. Ness. 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 rx: flagyl and keflex provided to patient for presumed persistent osteomyelitis Critical care attestation.: If time is entered above; I have spent that time in minutes in the direct care of this critically ill patient, excluding procedure time. ED Disposition Clinical Impression: Gangrene of foot, Hx of osteomyelitis Disposition: TO HOME OR SELFCARE Is pt being admited?: No Condition: Stable Instructions: Osteomyelitis (ED) Prescriptions: cephALEXin [Keflex] 500 mg PO Q8HR 10 Days #30 cap metroNIDAZOLE [Flagyl] 500 mg PO Q8HR 10 Days #30 tablet Referrals: PRIMARY CARE, [Primary Care Provider] - 3-5 Days Time of Disposition: 01:20
[2018-06-04] MEDS ORDERED: FLAGYL PO ONE (01:16)
[2018-06-04] MEDS ORDERED: KEFLEX PO ONE (01:16)
[2018-06-04 01:56] VITALS: BP 109/68
== END 2018-06-04 01:55 | disposition home or self-care (01) ==
LOC: ED 20:52
DX: I96 Gangrene, not elsewhere classified (principal); R50.9 Fever, unspecified; M79.1 Myalgia; R51 Headache
CPT/HCPCS: 36415; 71046; 80053; 82140; 82805; 85025; 85610; 86850; 86900; 86901; 87040

== ENCOUNTER 2018-06-07 07:58 | Outpatient (CLI) | payer BC ==
[2018-06-07] MEDS ORDERED: XYLOCAINE TOPICAL 4% TP ONE (11:00)
[2018-06-07] MEDS ORDERED: SILVER NITRATE TP ONE (11:00)
== END 2018-06-07 07:59 | disposition home or self-care (01) ==
LOC: WOUND 07:58
PROVIDERS: ATTEND Surgery
DX: T81.89XD Other complications of procedures, not elsewhere classified, subsequent encounter (principal); I96 Gangrene, not elsewhere classified; M86.671 Other chronic osteomyelitis, right ankle and foot; Y83.8 Other surgical procedures as the cause of abnormal reaction of the patient, or of later complication, without mention of misadventure at the time of the procedure
CPT/HCPCS: 17250; 97605; G0277; 99183

== ENCOUNTER 2018-06-08 08:00 | Outpatient (CLI) | payer BC ==
[2018-06-08] MEDS ORDERED: SODIUM CHLORIDE FLUSH SYRINGE 10 ML IV ONE ×2 (10:05→10:08)
== END 2018-06-08 08:01 | disposition home or self-care (01) ==
LOC: WOUND 08:00
PROVIDERS: ATTEND Surgery
DX: T81.89XD Other complications of procedures, not elsewhere classified, subsequent encounter (principal); M86.671 Other chronic osteomyelitis, right ankle and foot; I96 Gangrene, not elsewhere classified; Y83.8 Other surgical procedures as the cause of abnormal reaction of the patient, or of later complication, without mention of misadventure at the time of the procedure
CPT/HCPCS: 99183; G0277